=== PATIENT | male | born 1965 | race African-American/Black ===

== ENCOUNTER 2018-09-19 22:38 | Emergency (ER) | payer OTHER ==
[~2018-09-19] VITALS: Ht 195.6 cm; Wt 129.3 kg
--- NOTE | ~2018-09-19 | EKG ---
[place] [address] [facility] [place] [address] ELECTROCARDIOGRAM REPORT Name: LO DIMAS Room #: KACI Hayden#: [id number] Admission: 09/19/18 Attend Phys: Discharge: 09/20/18 Date of : 63 Report #: [id number] THIS REPORT FOR: //name// [facility] ED Test Date: 2018-09-19 Test Time: 22:57:52 Pat Name: LO DIMAS Department: Room: Gender: Membership Sales Advisor: Rickey RAMIREZ : 1965 Requested By: Merlyn Ruiz Order Number: [id number] MD: Aly Handy Measurements Intervals [place] Rate: 58 P: 64 [place]: 142 QRS: 51 QRSD: 100 T: 76 QT: 481 QTc: 473 Interpretive Statements Sinus bradycardia Otherwise no significant abnormality No previous ECG available for comparison Electronically Signed On 09-20-2018 9:04:05 TACTICAL/MOBILE WATCH OFFICER by Aly Handy [email or web address] <ELECTRONICALLY SIGNED> By: Aly Handy MD, [facility] 09/20/18 0904 [id number] Aly Handy MD, FAC /EPI
[2018-09-19 23:02] LABS: HEMATOCRIT 46.3 % (42.0-52.0); MCH 24.1 pg (26.0-34.0); MCHC 32.4 g/dL (28.0-37.0); MCV 74.4 fL (80.0-100.0); RBC 6.22 mil/uL (4.50-6.00); RDW 15.4 % (10.5-14.5); WBC 6.3 thou/uL (4.0-11.0)
[2018-09-19 23:08] LABS: ANION GAP 8 mmol/L (7-16); BUN 10 mg/dL (7-18); CALCIUM 9.3 mg/dL (8.5-10.1); CHLORIDE 101 mmol/L (98-107); CO2 26 mmol/L (21-32); CREATININE 1.3 mg/dL (0.7-1.3); GLUCOSE 109 mg/dL (74-106); POTASSIUM 4.4 mmol/L (3.5-5.1); SODIUM 135 mmol/L (136-145)
[2018-09-19 23:16] LABS: ALBUMIN 3.4 g/dL (3.4-5.0); LIPASE 93 U/L (73-393); SGOT 18 U/L (15-37); SGPT 15 U/L (30-65); TOTAL BILIRUBIN 0.6 mg/dL (<0.1-1.0); TOTAL PROTEIN 7.8 g/dL (6.4-8.2); TROPONIN-I <0.06 ng/mL (<0.06)
[2018-09-20 01:29] LABS: URINE BILIRUBIN NEGATIVE (Negative); URINE BLOOD NEGATIVE (Negative); URINE CLARITY SL CLOUDY; URINE COLOR YELLOW; URINE GLUCOSE-RANDOM* NEGATIVE (Negative); URINE KETONES 1+ (Negative); URINE LEUKOCYTES-REFLEX NEGATIVE (Negative); URINE NITRITE-REFLEX NEGATIVE (Negative); URINE PROTEIN (DIPSTICK) NEGATIVE (Negative); URINE SPECIFIC GRAVITY 1.015 (1.005-1.035); URINE UROBILINOGEN 0.2 E.U./dl (0.2-1.0)
[2018-09-20] MEDS ORDERED: VISTARIL50 MG PO (01:40)
[2018-09-20] MEDS ORDERED: ZOFRAN4 MG PO (01:40)
[2018-09-20 02:16] VITALS: BP 175/108
== END 2018-09-20 02:17 | disposition home or self-care (01) ==
LOC: ER 22:38
PROVIDERS: Student in an Organized Health Care Education/Training Program
DX: R10.11 Right upper quadrant pain (principal); R10.13 Epigastric pain; R11.2 Nausea with vomiting, unspecified